=== PATIENT | male | born 1970 | race Caucasian/White ===

== ENCOUNTER 2016-12-04 10:22 | Observation (INO) | payer OTHER, MEDICAID ==
[~2016-12-04] VITALS: Ht 190.5 cm; Wt 127.2 kg
[~2016-12-04 10:22] MED LIST: ATOR20TA9 PO; CITA40TA12 PO; DIVA250T6 PO; DIVA500T2 PO; NAPR500T3 PO; OLAN20TA3 PO; RISP1TAB45 PO; SUMA50TA4 PO
[2016-12-04 10:51] LABS: HEMOGLOBIN 15.2 g/dL (13.7-18.0)
[2016-12-04 11:07] LABS: BLOOD UREA NITROGEN 14 mg/dL (7-18)
[2016-12-04 11:22] LABS: ACETAMINOPHEN < 2 mcg/mL (10-30)
[2016-12-04 11:58] LABS: DAU SCREEN DISCLAIMER
[2016-12-04] MEDS ORDERED: SUMATRIPTAN 50 MG TABLET PO PRN (13:00)
[2016-12-04] MEDS ORDERED: POLYETHYLENE GLYCOL 17 GM PACKET PO PRN (13:00)
[2016-12-04 14:34] VITALS: BP 120/80
[2016-12-04] MEDS: ENOXAPARIN 40 MG/0.4 ML SQ SCH ×2 (15:30→16:04)
[2016-12-04 19:33] VITALS: BP 152/79
[2016-12-04] MEDS ORDERED: DIVALPROEX 250 MG TABLET.DR PO SCH (21:00)
[2016-12-04] MEDS ORDERED: RISPERIDONE 1 MG TABLET PO SCH (21:00)
[2016-12-04] MEDS ORDERED: LACTULOSE 10 GM/15 ML UDC PO SCH (21:00)
[2016-12-04] MEDS ORDERED: ATORVASTATIN 20 MG TABLET PO SCH (21:00)
[2016-12-05] MEDS ORDERED: DIVALPROEX 500 MG TABLET.DR PO SCH (09:00)
== END 2016-12-04 20:05 ==
LOC: ED 11:57 → EDIP 11:58 → ED 12:26 → 3E 13:20
PROVIDERS: ADMIT Hospitalist; ATTEND Hospitalist
DX: R45.851 Suicidal ideations (principal); E78.00 Pure hypercholesterolemia, unspecified; E78.5 Hyperlipidemia, unspecified; F31.9 Bipolar disorder, unspecified; F41.9 Anxiety disorder, unspecified; F25.9 Schizoaffective disorder, unspecified; F95.2 Tourette's disorder; Z91.14 Patient's other noncompliance with medication regimen; Z91.5 Personal history of self-harm; Z79.899 Other long term (current) drug therapy
CPT/HCPCS: 36415; 80048; 80307; 80329; 82040; 84439; 84443; 85025; 85610; 99285; G0378; J1650; G0480

== ENCOUNTER 2017-01-29 18:03 | Observation (INO) | payer OTHER, MEDICAID ==
[~2017-01-29] VITALS: Ht 188 cm; Wt 127.0 kg
[2017-01-29 18:44] LABS: DAU SCREEN DISCLAIMER
[2017-01-29 19:26] LABS: BLOOD UREA NITROGEN 14 mg/dL (7-18)
[2017-01-29 19:28] LABS: ACETAMINOPHEN < 2 mcg/mL (10-30)
[2017-01-29] MEDS ORDERED: BISACODYL 10 MG SUPP PR PRN (20:30)
[2017-01-29] MEDS ORDERED: ONDANSETRON ODT 4 MG PO PRN (20:30)
[2017-01-29] MEDS ORDERED: POLYETHYLENE GLYCOL 17 GM PACKET PO PRN (20:30)
[2017-01-29] MEDS ORDERED: ACETAMINOPHEN 325 MG TABLET PO PRN (20:30)
[2017-01-29] MEDS ORDERED: NICOTINE 14MG/24 HR PATCH.TD24 TD SCH (20:30)
[2017-01-29] MEDS ORDERED: SUMATRIPTAN 50 MG TABLET PO PRN (20:30)
[2017-01-29] MEDS ORDERED: DIVALPROEX 250 MG TABLET.DR PO SCH (21:00)
[2017-01-29] MEDS ORDERED: ATORVASTATIN 20 MG TABLET PO SCH (21:00)
[2017-01-29] MEDS ORDERED: RISPERIDONE 1 MG TABLET PO SCH (21:00)
[2017-01-29] MEDS: NAPROXEN 500 MG TABLET PO SCH (22:05)
[2017-01-30 07:44] VITALS: BP 131/75
[2017-01-30] MEDS: NAPROXEN 500 MG TABLET PO SCH (08:44)
[2017-01-30] MEDS ORDERED: SENNA/DOCUSATE TABLET PO SCH (09:00)
[2017-01-30] MEDS ORDERED: DIVALPROEX 250 MG TABLET.DR PO SCH (09:00)
== END 2017-01-30 12:50 ==
LOC: ED 20:05 → EDIP 20:06 → ED 20:27 → 3E 21:23
PROVIDERS: ADMIT Internal Medicine; ATTEND Internal Medicine
DX: R45.851 Suicidal ideations (principal); F25.9 Schizoaffective disorder, unspecified; F31.9 Bipolar disorder, unspecified; F33.9 Major depressive disorder, recurrent, unspecified; F41.9 Anxiety disorder, unspecified; E78.5 Hyperlipidemia, unspecified; I10 Essential (primary) hypertension; F95.2 Tourette's disorder; F17.210 Nicotine dependence, cigarettes, uncomplicated; Z82.49 Family history of ischemic heart disease and other diseases of the circulatory system
CPT/HCPCS: 36415; 80048; 80307; 80329; 81003; 82040; 85025; 99285; G0378; G0480

== ENCOUNTER 2017-03-02 10:23 | Observation (INO) | payer OTHER, MEDICAID ==
[~2017-03-02] VITALS: Ht 177.8 cm; Wt 130.0 kg
[2017-03-02 11:28] LABS: BLOOD UREA NITROGEN 10 mg/dL (7-18)
[2017-03-02 11:36] LABS: ACETAMINOPHEN < 2 mcg/mL (10-30)
[2017-03-02 11:48] LABS: DAU SCREEN DISCLAIMER
[2017-03-02] MEDS ORDERED: SUMATRIPTAN 50 MG TABLET PO PRN (14:30)
[2017-03-02] MEDS ORDERED: BISACODYL 10 MG SUPP PR PRN (15:00)
[2017-03-02] MEDS ORDERED: NAPROXEN 250 MG TABLET PO PRN (15:00)
[2017-03-02] MEDS ORDERED: DIPHENHYDRAMINE 50 MG CAPSULE PO PRN (15:00)
[2017-03-02] MEDS ORDERED: POLYETHYLENE GLYCOL 17 GM PACKET PO PRN (15:00)
[2017-03-02] MEDS ORDERED: DOCUSATE 100 MG CAPSULE PO PRN (15:00)
[2017-03-02] MEDS: RISPERIDONE 1 MG TABLET PO SCH (21:12)
[2017-03-02] MEDS: DIVALPROEX 250 MG TABLET.DR PO SCH (21:12)
[2017-03-02] MEDS: ATORVASTATIN 20 MG TABLET PO SCH (21:13)
[2017-03-02] MEDS: NYSTATIN/TRIAMCINOLONE CRM 15GM TP SCH (21:13)
[2017-03-02] MEDS: NICOTINE 14MG/24 HR PATCH.TD24 TD SCH (22:00)
[2017-03-02 22:20] VITALS: BP 124/84
[2017-03-03 08:37] VITALS: BP 144/89
[2017-03-03] MEDS: NYSTATIN/TRIAMCINOLONE CRM 15GM TP SCH ×2 (09:56→20:34)
[2017-03-03] MEDS: DIVALPROEX 250 MG TABLET.DR PO SCH ×2 (09:56→20:35)
[2017-03-03] MEDS: NICOTINE 14MG/24 HR PATCH.TD24 TD SCH (16:27)
[2017-03-03 20:26] VITALS: BP 122/79
[2017-03-03] MEDS: ATORVASTATIN 20 MG TABLET PO SCH (20:34)
[2017-03-03] MEDS: RISPERIDONE 1 MG TABLET PO SCH (20:35)
[2017-03-04 08:30] VITALS: BP 126/86
[2017-03-04] MEDS: DIVALPROEX 250 MG TABLET.DR PO SCH ×2 (08:33→20:04)
[2017-03-04] MEDS: NYSTATIN/TRIAMCINOLONE CRM 15GM TP SCH ×2 (08:35→20:04)
[2017-03-04] MEDS: NICOTINE 14MG/24 HR PATCH.TD24 TD SCH (15:00)
[2017-03-04] MEDS: RISPERIDONE 1 MG TABLET PO SCH (20:04)
[2017-03-04] MEDS: ATORVASTATIN 20 MG TABLET PO SCH (20:04)
[2017-03-04 22:12] VITALS: BP 113/71
[2017-03-05 08:00] VITALS: BP 121/81
[2017-03-05] MEDS: DIVALPROEX 250 MG TABLET.DR PO SCH ×2 (08:38→20:36)
[2017-03-05] MEDS: NYSTATIN/TRIAMCINOLONE CRM 15GM TP SCH ×2 (08:39→20:36)
[2017-03-05] MEDS: NICOTINE 14MG/24 HR PATCH.TD24 TD SCH (15:00)
[2017-03-05 19:43] VITALS: BP 132/89
[2017-03-05] MEDS: ATORVASTATIN 20 MG TABLET PO SCH (20:36)
[2017-03-05] MEDS: RISPERIDONE 1 MG TABLET PO SCH (20:37)
[2017-03-06 07:57] VITALS: BP 134/86
[2017-03-06] MEDS: NYSTATIN/TRIAMCINOLONE CRM 15GM TP SCH (10:15)
[2017-03-06] MEDS: DIVALPROEX 250 MG TABLET.DR PO SCH (10:15)
== END 2017-03-06 15:00 | disposition home or self-care (01) ==
LOC: ED 11:33 → EDIP 14:08 → 3E 22:14
PROVIDERS: ADMIT Internal Medicine; ATTEND Internal Medicine
DX: R45.851 Suicidal ideations (principal); F25.9 Schizoaffective disorder, unspecified; F31.9 Bipolar disorder, unspecified; E78.5 Hyperlipidemia, unspecified; F32.9 Major depressive disorder, single episode, unspecified; E78.00 Pure hypercholesterolemia, unspecified; F95.2 Tourette's disorder; F17.210 Nicotine dependence, cigarettes, uncomplicated; Z91.5 Personal history of self-harm; Z86.79 Personal history of other diseases of the circulatory system; Z82.49 Family history of ischemic heart disease and other diseases of the circulatory system
CPT/HCPCS: 36415; 80048; 80307; 80329; 82040; 85025; 93005; 99285; G0378; G0480

== ENCOUNTER 2017-05-29 13:57 | Observation (INO) | payer OTHER, MEDICAID ==
[~2017-05-29] VITALS: Ht 190.5 cm; Wt 127.0 kg
[2017-05-29] MEDS ORDERED: DIVA500T2 PO (14:06)
[2017-05-29 14:28] LABS: DAU SCREEN DISCLAIMER
[2017-05-29 14:30] LABS: HEMATOCRIT 42.7 % (39.2-51.8); HEMOGLOBIN 14.6 g/dL (13.7-18.0); WHITE BLOOD COUNT 8.7 x10^3/uL (3.4-10)
[2017-05-29] MEDS ORDERED: IBUPROFEN 200 MG TABLET PO ONE (14:30)
[2017-05-29 14:42] LABS: BLOOD UREA NITROGEN 17 mg/dL (7-18)
[2017-05-29 14:46] LABS: ASPARTATE AMINO TRANSFERASE 28 U/L (15-37)
[2017-05-29 14:51] LABS: ACETAMINOPHEN < 2 mcg/mL (10-30)
[2017-05-29] MEDS ORDERED: POLYETHYLENE GLYCOL 17 GM PACKET PO PRN (16:00)
[2017-05-29] MEDS ORDERED: HALOPERIDOL 5 MG TABLET PO PRN (16:00)
[2017-05-29] MEDS ORDERED: ONDANSETRON ODT 4 MG PO PRN (16:00)
[2017-05-29] MEDS ORDERED: LORazepam 1MG TABLET PO PRN (16:00)
[2017-05-29 18:31] VITALS: BP 135/88
[2017-05-29 19:38] VITALS: BP 127/72
[2017-05-29] MEDS: ATORVASTATIN 20 MG TABLET PO SCH (20:36)
[2017-05-29] MEDS: DIVALPROEX 500 MG TABLET.DR PO SCH (20:36)
[2017-05-29] MEDS: RISPERIDONE 1 MG TABLET PO SCH (20:37)
[2017-05-30 08:08] VITALS: BP 136/87
[2017-05-30] MEDS: DIVALPROEX 500 MG TABLET.DR PO SCH ×2 (08:55→20:54)
[2017-05-30] MEDS: ACETAMINOPHEN 325 MG TABLET PO PRN (08:55)
[2017-05-30 19:42] VITALS: BP 131/82
[2017-05-30] MEDS: RISPERIDONE 1 MG TABLET PO SCH (20:55)
[2017-05-30] MEDS: ATORVASTATIN 20 MG TABLET PO SCH (20:55)
[2017-05-31 07:57] VITALS: BP 155/102
[2017-05-31] MEDS: DIVALPROEX 500 MG TABLET.DR PO SCH ×2 (07:58→20:15)
[2017-05-31] MEDS: ACETAMINOPHEN 325 MG TABLET PO PRN (07:59)
[2017-05-31 19:16] VITALS: BP 131/98
[2017-05-31] MEDS: SUMATRIPTAN 50 MG TABLET PO PRN (20:15)
[2017-05-31] MEDS: RISPERIDONE 1 MG TABLET PO SCH (20:15)
[2017-05-31] MEDS: ATORVASTATIN 20 MG TABLET PO SCH (20:15)
[2017-06-01 07:15] VITALS: BP 132/92
[2017-06-01] MEDS: DIVALPROEX 500 MG TABLET.DR PO SCH ×2 (08:29→20:42)
[2017-06-01] MEDS: SUMATRIPTAN 50 MG TABLET PO PRN ×2 (09:10→20:42)
[2017-06-01] MEDS ORDERED: ONDANSETRON ODT 4 MG PO PRN (19:30)
[2017-06-01] MEDS ORDERED: POLYETHYLENE GLYCOL 17 GM PACKET PO PRN (19:30)
[2017-06-01 20:33] VITALS: BP 148/92
[2017-06-01] MEDS: ATORVASTATIN 20 MG TABLET PO SCH (20:42)
[2017-06-01] MEDS: RISPERIDONE 1 MG TABLET PO SCH (20:42)
[2017-06-02 08:19] VITALS: BP 144/95
[2017-06-02] MEDS: DIVALPROEX 500 MG TABLET.DR PO SCH ×2 (08:54→20:04)
[2017-06-02] MEDS: SUMATRIPTAN 50 MG TABLET PO PRN (13:55)
[2017-06-02 19:22] VITALS: BP 133/84
[2017-06-02] MEDS: RISPERIDONE 1 MG TABLET PO SCH (20:04)
[2017-06-02] MEDS: ATORVASTATIN 20 MG TABLET PO SCH (20:04)
[2017-06-03 07:57] VITALS: BP 138/92
[2017-06-03] MEDS: DIVALPROEX 500 MG TABLET.DR PO SCH ×2 (08:33→20:25)
[2017-06-03] MEDS: SUMATRIPTAN 50 MG TABLET PO PRN (10:34)
[2017-06-03 19:52] VITALS: BP 136/90
[2017-06-03] MEDS: ATORVASTATIN 20 MG TABLET PO SCH (20:25)
[2017-06-03] MEDS: RISPERIDONE 1 MG TABLET PO SCH (20:25)
[2017-06-04 07:15] VITALS: BP_SYST 108; BP_SYST 127; BP_DIAS 71; BP_DIAS 88
[2017-06-04] MEDS: DIVALPROEX 500 MG TABLET.DR PO SCH ×2 (08:49→20:39)
[2017-06-04] MEDS: SUMATRIPTAN 50 MG TABLET PO PRN (08:49)
[2017-06-04 19:20] VITALS: BP 148/95
[2017-06-04] MEDS: RISPERIDONE 1 MG TABLET PO SCH (20:39)
[2017-06-04] MEDS: ATORVASTATIN 20 MG TABLET PO SCH (20:39)
[2017-06-04] MEDS: ACETAMINOPHEN 325 MG TABLET PO PRN (20:43)
[2017-06-05 08:00] VITALS: BP 137/94
[2017-06-05] MEDS: DIVALPROEX 500 MG TABLET.DR PO SCH (10:02)
[2017-06-05 14:51] LABS: ASPARTATE AMINO TRANSFERASE 26 U/L (15-37); BLOOD UREA NITROGEN 16 mg/dL (7-18)
[2017-06-05 14:54] LABS: VALPROIC ACID 99.2 mcg/mL (50.0-100.0)
== END 2017-06-05 16:40 | disposition home or self-care (01) ==
LOC: ED 15:00 → EDIP 15:06 → 3E 18:17
PROVIDERS: ADMIT Internal Medicine; ATTEND Internal Medicine
DX: R45.851 Suicidal ideations (principal); E78.00 Pure hypercholesterolemia, unspecified; R73.02 Impaired glucose tolerance (oral); E66.9 Obesity, unspecified; E78.5 Hyperlipidemia, unspecified; F22 Delusional disorders; F25.9 Schizoaffective disorder, unspecified; F32.9 Major depressive disorder, single episode, unspecified
CPT/HCPCS: 36415; 80053; 80164; 80307; 80329; 85025; 99285; G0378; G0479; G0480

== ENCOUNTER 2017-08-24 10:24 | Emergency (ER) | payer OTHER, MEDICAID ==
[~2017-08-24] VITALS: Ht 190.5 cm; Wt 141.0 kg
[~2017-08-24 10:24] MED LIST changes: -NAPR500T3 PO; +NAPR500T4 PO
[2017-08-24 11:13] LABS: BLOOD UREA NITROGEN 19 mg/dL (7-18)
[2017-08-24 11:14] LABS: ACETAMINOPHEN < 2 mcg/mL (10-30)
[2017-08-24 11:24] LABS: HEMATOCRIT 45.9 % (39.2-51.8); HEMOGLOBIN 15.6 g/dL (13.7-18.0); WHITE BLOOD COUNT 7.4 x10^3/uL (3.4-10)
[2017-08-24 12:24] LABS: DAU SCREEN DISCLAIMER
[2017-08-24 15:12] VITALS: BP 144/86
== END 2017-08-24 16:18 | disposition home or self-care (01) ==
LOC: ED 12:49
DX: F31.9 Bipolar disorder, unspecified (principal); F25.9 Schizoaffective disorder, unspecified; E78.00 Pure hypercholesterolemia, unspecified
CPT/HCPCS: 36415; 80048; 80307; 80329; 82040; 85025; 99284; G0479; G0480

== ENCOUNTER 2017-10-11 19:27 | Observation (INO) | payer OTHER, MEDICAID ==
[~2017-10-11] VITALS: Ht 185.4 cm; Wt 127.3 kg
[2017-10-11 20:14] LABS: BASOPHILS # (AUTO) 0.03 x10^3/uL (0-0.1); BASOPHILS % (AUTO) 0 % (0-1); EOSINOPHILS # (AUTO) 0.12 x10^3/uL (0-0.4); EOSINOPHILS % (AUTO) 2 % (1-7); LYMPHOCYTES # (AUTO) 1.82 x10^3/uL (1-3.4); LYMPHOCYTES % (AUTO) 26 % (22-44); MD NO; MEAN CORPUSCULAR HEMOGLOBIN 30.8 pg (27.5-34.5); MEAN CORPUSCULAR HGB CONC 34.4 g/dL (33.2-36.2); MEAN CORPUSCULAR VOLUME 89.4 fL (81-97); MEAN PLATELET VOLUME 8.6 fL (7.4-10.4); MONOCYTES # (AUTO) 0.57 x10^3/uL (0.2-0.8); MONOCYTES % (AUTO) 8 % (2-9); NEUTROPHILS # (AUTO) 4.37 x10^3/uL (1.8-6.8); NEUTROPHILS % (AUTO) 63 % (42-75); PLATELET COUNT 241 x10^3/uL (130-400); RED BLOOD COUNT 5.33 x10^6/uL (4.38-5.82); RED CELL DISTRIBUTION WIDTH 12.2 % (9.4-14.8)
[2017-10-11 20:25] LABS: ALBUMIN 3.8 g/dL (3.4-5.0); ANION GAP 10 mmol/L (5-15); CALCIUM 8.7 mg/dL (8.5-10.1); CHLORIDE 108 mmol/L (98-107)
[2017-10-11 20:28] LABS: ACETAMINOPHEN < 2 mcg/mL (10-30); SALICYLATE LEVEL < 1.7 mg/dL (2.8-20.0)
[2017-10-11] MEDS ORDERED: ONDANSETRON ODT 4 MG PO PRN (22:30)
[2017-10-11] MEDS ORDERED: POLYETHYLENE GLYCOL 17 GM PACKET PO PRN (22:30)
[2017-10-11] MEDS ORDERED: BISACODYL 10 MG SUPP PR PRN (22:30)
[2017-10-11 22:35] LABS: AMPHETAMINE SCREEN, URINE Positive (Negative); BARBITURATE SCREEN, URINE Negative (Negative); BENZODIAZEPINE SCREEN, URINE Negative (Negative); CANNABINOID SCREEN, URINE Positive (Negative); COCAINE SCREEN, URINE Negative (Negative); METHADONE SCREEN, URINE Negative (Negative); OPIATE SCREEN, URINE Negative (Negative)
[2017-10-11] MEDS ORDERED: POTASSIUM CHLORIDE 20 MEQ TAB.ER.PRT PO ONE (23:00)
[2017-10-11] MEDS ORDERED: NICOTINE 21 MG/24 HR PATCH.TD24 TD ONE (23:00)
[2017-10-11 23:01] LABS: MICROSCOPIC INDICATED
[2017-10-11 23:10] VITALS: BP 114/76
[2017-10-12] MEDS ORDERED: POTASSIUM CHLORIDE 20 MEQ TAB.ER.PRT PO ONE (07:30)
[2017-10-12 07:45] VITALS: BP 122/79
[2017-10-12] MEDS: SENNA/DOCUSATE TABLET PO SCH (09:00)
[2017-10-12 19:45] VITALS: BP 104/73
[2017-10-13 05:29] LABS: ALBUMIN 3.3 g/dL (3.4-5.0); ANION GAP 7 mmol/L (5-15); BASOPHILS # (AUTO) 0.03 x10^3/uL (0-0.1); BASOPHILS % (AUTO) 0 % (0-1); CALCIUM 8.2 mg/dL (8.5-10.1); CHLORIDE 110 mmol/L (98-107); CREATININE 0.88 mg/dL (0.7-1.3); EOSINOPHILS # (AUTO) 0.16 x10^3/uL (0-0.4); EOSINOPHILS % (AUTO) 2 % (1-7); LYMPHOCYTES # (AUTO) 3.06 x10^3/uL (1-3.4); LYMPHOCYTES % (AUTO) 40 % (22-44); MD NO; MEAN CORPUSCULAR HEMOGLOBIN 30.6 pg (27.5-34.5); MEAN CORPUSCULAR HGB CONC 34.1 g/dL (33.2-36.2); MEAN CORPUSCULAR VOLUME 89.8 fL (81-97); MEAN PLATELET VOLUME 8.6 fL (7.4-10.4); MONOCYTES # (AUTO) 0.58 x10^3/uL (0.2-0.8); MONOCYTES % (AUTO) 8 % (2-9); NEUTROPHILS # (AUTO) 3.92 x10^3/uL (1.8-6.8); NEUTROPHILS % (AUTO) 51 % (42-75); PLATELET COUNT 211 x10^3/uL (130-400); RED BLOOD COUNT 5.08 x10^6/uL (4.38-5.82); RED CELL DISTRIBUTION WIDTH 12.4 % (9.4-14.8)
[2017-10-13 08:00] VITALS: BP 129/76
[2017-10-13] MEDS: SENNA/DOCUSATE TABLET PO SCH (08:04)
[2017-10-13 20:00] VITALS: BP 118/82
[2017-10-14 08:24] VITALS: BP 110/72
[2017-10-14] MEDS: SENNA/DOCUSATE TABLET PO SCH (09:00)
[2017-10-14] MEDS: SERTRALINE 50MG TABLET PO SCH (11:12)
[2017-10-14 20:21] VITALS: BP 100/67
[2017-10-15 05:53] LABS: ALBUMIN 3.2 g/dL (3.4-5.0); ANION GAP 6 mmol/L (5-15); CALCIUM 8.3 mg/dL (8.5-10.1); CHLORIDE 110 mmol/L (98-107)
[2017-10-15 08:08] VITALS: BP 133/93
[2017-10-15] MEDS: SENNA/DOCUSATE TABLET PO SCH (08:17)
[2017-10-15] MEDS: SERTRALINE 50MG TABLET PO SCH (08:18)
[2017-10-15 19:07] VITALS: BP 110/79
[2017-10-16 07:13] VITALS: BP 120/77
[2017-10-16] MEDS: SENNA/DOCUSATE TABLET PO SCH (08:53)
[2017-10-16] MEDS: SERTRALINE 50MG TABLET PO SCH (08:53)
[2017-10-16] MEDS: DOXYCYCLINE 100MG TABLET PO SCH ×2 (17:18→21:00)
[2017-10-16] MEDS: AMOXICILLIN/CLAV 875-125MG TABLET PO SCH ×2 (17:18→21:00)
[2017-10-16 19:22] VITALS: BP 134/77
[2017-10-17 07:29] VITALS: BP 108/72
[2017-10-17] MEDS: SERTRALINE 50MG TABLET PO SCH (08:19)
[2017-10-17] MEDS: AMOXICILLIN/CLAV 875-125MG TABLET PO SCH ×2 (08:19→20:47)
[2017-10-17] MEDS: DOXYCYCLINE 100MG TABLET PO SCH ×2 (08:19→20:47)
[2017-10-17] MEDS: SENNA/DOCUSATE TABLET PO SCH (08:19)
[2017-10-17 20:00] VITALS: BP 112/73
[2017-10-18 08:00] VITALS: BP 117/74
[2017-10-18] MEDS: AMOXICILLIN/CLAV 875-125MG TABLET PO SCH ×2 (09:28→20:53)
[2017-10-18] MEDS: DOXYCYCLINE 100MG TABLET PO SCH ×2 (09:29→20:53)
[2017-10-18] MEDS: SERTRALINE 50MG TABLET PO SCH (09:29)
[2017-10-18] MEDS: SENNA/DOCUSATE TABLET PO SCH (09:29)
[2017-10-18 20:00] VITALS: BP 133/80
[2017-10-19 05:38] LABS: BASOPHILS # (AUTO) 0.07 x10^3/uL (0-0.1); BASOPHILS % (AUTO) 1 % (0-1); EOSINOPHILS # (AUTO) 0.11 x10^3/uL (0-0.4); EOSINOPHILS % (AUTO) 1 % (1-7); LYMPHOCYTES # (AUTO) 3.36 x10^3/uL (1-3.4); LYMPHOCYTES % (AUTO) 44 % (22-44); MD NO; MEAN CORPUSCULAR HEMOGLOBIN 30.6 pg (27.5-34.5); MEAN PLATELET VOLUME 8.5 fL (7.4-10.4); MONOCYTES # (AUTO) 0.53 x10^3/uL (0.2-0.8); MONOCYTES % (AUTO) 7 % (2-9); NEUTROPHILS # (AUTO) 3.57 x10^3/uL (1.8-6.8); NEUTROPHILS % (AUTO) 47 % (42-75); PLATELET COUNT 243 x10^3/uL (130-400); RED BLOOD COUNT 5.18 x10^6/uL (4.38-5.82); RED CELL DISTRIBUTION WIDTH 11.9 % (9.4-14.8)
[2017-10-19 05:46] LABS: ALBUMIN 3.4 g/dL (3.4-5.0); ANION GAP 9 mmol/L (5-15); CALCIUM 8.3 mg/dL (8.5-10.1); CHLORIDE 108 mmol/L (98-107)
[2017-10-19 05:48] LABS: CREATININE 0.94 mg/dL (0.7-1.3)
[2017-10-19 08:00] VITALS: BP 118/82
[2017-10-19] MEDS: AMOXICILLIN/CLAV 875-125MG TABLET PO SCH ×2 (08:56→20:19)
[2017-10-19] MEDS: DOXYCYCLINE 100MG TABLET PO SCH ×2 (08:56→20:19)
[2017-10-19] MEDS: SERTRALINE 50MG TABLET PO SCH (08:56)
[2017-10-19] MEDS: SENNA/DOCUSATE TABLET PO SCH (08:57)
[2017-10-19] MEDS: ENOXAPARIN 40 MG/0.4 ML SQ SCH (11:58)
[2017-10-19] MEDS: ACETAMINOPHEN 325 MG TABLET PO PRN (20:19)
[2017-10-19 20:24] VITALS: BP 101/75
[2017-10-20 07:45] VITALS: BP 115/78
[2017-10-20] MEDS: SERTRALINE 50MG TABLET PO SCH (08:40)
[2017-10-20] MEDS: DOXYCYCLINE 100MG TABLET PO SCH ×2 (08:40→20:55)
[2017-10-20] MEDS: AMOXICILLIN/CLAV 875-125MG TABLET PO SCH ×2 (08:41→20:56)
[2017-10-20] MEDS: ENOXAPARIN 40 MG/0.4 ML SQ SCH (08:42)
[2017-10-20] MEDS: SENNA/DOCUSATE TABLET PO SCH (08:42)
[2017-10-20 19:37] VITALS: BP 102/69
[2017-10-20] MEDS: RISPERIDONE 1 MG TABLET PO SCH (20:55)
[2017-10-21 07:18] VITALS: BP 110/73
[2017-10-21] MEDS: ENOXAPARIN 40 MG/0.4 ML SQ SCH (08:17)
[2017-10-21] MEDS: AMOXICILLIN/CLAV 875-125MG TABLET PO SCH ×2 (08:18→20:25)
[2017-10-21] MEDS: SERTRALINE 50MG TABLET PO SCH (08:18)
[2017-10-21] MEDS: SENNA/DOCUSATE TABLET PO SCH (08:18)
[2017-10-21] MEDS: DOXYCYCLINE 100MG TABLET PO SCH ×2 (08:18→20:24)
[2017-10-21 19:38] VITALS: BP 120/81
[2017-10-21] MEDS: RISPERIDONE 1 MG TABLET PO SCH (20:25)
[2017-10-22 08:18] VITALS: BP 112/75
[2017-10-22] MEDS: DOXYCYCLINE 100MG TABLET PO SCH ×2 (08:39→21:12)
[2017-10-22] MEDS: SERTRALINE 50MG TABLET PO SCH (08:39)
[2017-10-22] MEDS: ENOXAPARIN 40 MG/0.4 ML SQ SCH (08:40)
[2017-10-22] MEDS: SENNA/DOCUSATE TABLET PO SCH (08:40)
[2017-10-22] MEDS: AMOXICILLIN/CLAV 875-125MG TABLET PO SCH ×2 (08:48→21:00)
[2017-10-22 19:42] VITALS: BP 138/85
[2017-10-22] MEDS: RISPERIDONE 1 MG TABLET PO SCH (21:11)
[2017-10-23 07:23] VITALS: BP 109/73
[2017-10-23] MEDS: SENNA/DOCUSATE TABLET PO SCH (08:41)
[2017-10-23] MEDS: AMOXICILLIN/CLAV 875-125MG TABLET PO SCH ×2 (08:41→20:15)
[2017-10-23] MEDS: SERTRALINE 50MG TABLET PO SCH (08:41)
[2017-10-23] MEDS: ENOXAPARIN 40 MG/0.4 ML SQ SCH (08:41)
[2017-10-23] MEDS: DOXYCYCLINE 100MG TABLET PO SCH ×2 (08:41→20:16)
[2017-10-23 19:35] VITALS: BP 97/66
[2017-10-23] MEDS: RISPERIDONE 1 MG TABLET PO SCH (20:16)
[2017-10-24 07:52] VITALS: BP 121/82
[2017-10-24] MEDS: AMOXICILLIN/CLAV 875-125MG TABLET PO SCH ×2 (09:00→20:06)
[2017-10-24] MEDS: SENNA/DOCUSATE TABLET PO SCH (09:00)
[2017-10-24] MEDS: DOXYCYCLINE 100MG TABLET PO SCH ×2 (09:01→20:06)
[2017-10-24] MEDS: SERTRALINE 50MG TABLET PO SCH (09:01)
[2017-10-24] MEDS: ENOXAPARIN 40 MG/0.4 ML SQ SCH (09:01)
[2017-10-24] MEDS: ACETAMINOPHEN 325 MG TABLET PO PRN (17:44)
[2017-10-24 19:40] VITALS: BP 159/82
[2017-10-24] MEDS: RISPERIDONE 1 MG TABLET PO SCH (20:07)
[2017-10-24 20:13] VITALS: BP 132/88
[2017-10-25 07:30] VITALS: BP 112/70
[2017-10-25] MEDS: ENOXAPARIN 40 MG/0.4 ML SQ SCH (08:29)
[2017-10-25] MEDS: SENNA/DOCUSATE TABLET PO SCH (08:29)
[2017-10-25] MEDS: DOXYCYCLINE 100MG TABLET PO SCH ×2 (08:30→20:28)
[2017-10-25] MEDS: AMOXICILLIN/CLAV 875-125MG TABLET PO SCH ×2 (08:30→20:27)
[2017-10-25] MEDS: SERTRALINE 50MG TABLET PO SCH (08:30)
[2017-10-25 20:18] VITALS: BP 119/81
[2017-10-25] MEDS: RISPERIDONE 1 MG TABLET PO SCH (20:27)
[2017-10-26 07:30] VITALS: BP 107/69
[2017-10-26] MEDS: ENOXAPARIN 40 MG/0.4 ML SQ SCH (08:54)
[2017-10-26] MEDS: SENNA/DOCUSATE TABLET PO SCH (08:55)
[2017-10-26] MEDS: DOXYCYCLINE 100MG TABLET PO SCH ×2 (08:55→20:22)
[2017-10-26] MEDS: SERTRALINE 50MG TABLET PO SCH (08:55)
[2017-10-26] MEDS: AMOXICILLIN/CLAV 875-125MG TABLET PO SCH ×2 (08:58→20:22)
[2017-10-26] MEDS: ACETAMINOPHEN 325 MG TABLET PO PRN (16:34)
[2017-10-26 20:08] VITALS: BP 118/75
[2017-10-26] MEDS: RISPERIDONE 1 MG TABLET PO SCH (20:22)
[2017-10-27 08:27] VITALS: BP 123/81
[2017-10-27] MEDS: ENOXAPARIN 40 MG/0.4 ML SQ SCH (08:48)
[2017-10-27] MEDS: SENNA/DOCUSATE TABLET PO SCH (08:49)
[2017-10-27] MEDS: AMOXICILLIN/CLAV 875-125MG TABLET PO SCH ×2 (08:49→20:12)
[2017-10-27] MEDS: DOXYCYCLINE 100MG TABLET PO SCH ×2 (08:49→20:12)
[2017-10-27] MEDS: SERTRALINE 50MG TABLET PO SCH (08:49)
[2017-10-27] MEDS: ACETAMINOPHEN 325 MG TABLET PO PRN (18:07)
[2017-10-27 19:40] VITALS: BP 121/85
[2017-10-27] MEDS: RISPERIDONE 1 MG TABLET PO SCH (20:12)
[2017-10-28 07:37] VITALS: BP 102/75
[2017-10-28] MEDS: DOXYCYCLINE 100MG TABLET PO SCH (08:07)
[2017-10-28] MEDS: SENNA/DOCUSATE TABLET PO SCH (08:07)
[2017-10-28] MEDS: ENOXAPARIN 40 MG/0.4 ML SQ SCH (08:07)
[2017-10-28] MEDS: SERTRALINE 50MG TABLET PO SCH (08:07)
[2017-10-28] MEDS: AMOXICILLIN/CLAV 875-125MG TABLET PO SCH (08:08)
== END 2017-10-28 14:05 ==
LOC: ED 20:56 → EDIP 22:34 → 2N 23:04
PROVIDERS: ADMIT Internal Medicine; ATTEND Internal Medicine
DX: R45.851 Suicidal ideations (principal); F31.9 Bipolar disorder, unspecified; R00.0 Tachycardia, unspecified; E87.6 Hypokalemia; E87.2 Acidosis; F25.9 Schizoaffective disorder, unspecified; E78.5 Hyperlipidemia, unspecified; F17.210 Nicotine dependence, cigarettes, uncomplicated; I10 Essential (primary) hypertension
CPT/HCPCS: 36415; 80048; 80307; 80329; 81001; 82040; 83735; 85025; 96372; 99285; G0378; J1650; Q0162; G0480

== ENCOUNTER 2017-11-04 23:50 | Emergency (ER) | payer OTHER, MEDICAID ==
[~2017-11-04] VITALS: Ht 190.5 cm; Wt 130.5 kg
[2017-11-05 00:46] LABS: ANION GAP 8 mmol/L (5-15); CALCIUM 8.7 mg/dL (8.5-10.1); CHLORIDE 105 mmol/L (98-107); CREATININE 1.27 mg/dL (0.7-1.3)
[2017-11-05 00:47] LABS: ACETAMINOPHEN < 2 mcg/mL (10-30); SALICYLATE LEVEL < 1.7 mg/dL (2.8-20.0)
[2017-11-05 00:53] LABS: BASOPHILS # (AUTO) 0.08 x10^3/uL (0-0.1); BASOPHILS % (AUTO) 1 % (0-1); EOSINOPHILS # (AUTO) 0.11 x10^3/uL (0-0.4); EOSINOPHILS % (AUTO) 1 % (1-7); LYMPHOCYTES # (AUTO) 3.29 x10^3/uL (1-3.4); LYMPHOCYTES % (AUTO) 32 % (22-44); MD NO; MEAN CORPUSCULAR HEMOGLOBIN 30.5 pg (27.5-34.5); MEAN CORPUSCULAR HGB CONC 34.1 g/dL (33.2-36.2); MEAN CORPUSCULAR VOLUME 89.4 fL (81-97); MEAN PLATELET VOLUME 8.5 fL (7.4-10.4); MONOCYTES # (AUTO) 0.93 x10^3/uL (0.2-0.8); MONOCYTES % (AUTO) 9 % (2-9); NEUTROPHILS # (AUTO) 6.04 x10^3/uL (1.8-6.8); NEUTROPHILS % (AUTO) 58 % (42-75); PLATELET COUNT 321 x10^3/uL (130-400); RED BLOOD COUNT 5.48 x10^6/uL (4.38-5.82); RED CELL DISTRIBUTION WIDTH 12.4 % (9.4-14.8)
[2017-11-05 01:37] LABS: AMPHETAMINE SCREEN, URINE Negative (Negative); BARBITURATE SCREEN, URINE Negative (Negative); BENZODIAZEPINE SCREEN, URINE Negative (Negative); CANNABINOID SCREEN, URINE Negative (Negative); COCAINE SCREEN, URINE Negative (Negative); METHADONE SCREEN, URINE Negative (Negative); OPIATE SCREEN, URINE Negative (Negative)
[2017-11-05 03:22] VITALS: BP 138/92
== END 2017-11-05 03:51 | disposition home or self-care (01) ==
LOC: ED 23:59
DX: F33.9 Major depressive disorder, recurrent, unspecified (principal); R45.851 Suicidal ideations; F20.9 Schizophrenia, unspecified; Z79.899 Other long term (current) drug therapy
CPT/HCPCS: 36415; 80048; 80307; 80329; 82040; 85025; 99284; G0480

== ENCOUNTER 2017-11-19 15:57 | Observation (INO) | payer OTHER, MEDICAID ==
[~2017-11-19] VITALS: Ht 193 cm; Wt 125.0 kg
[~2017-11-19 15:57] MED LIST changes: +NAPR-685 PO; -NAPR500T4 PO
[2017-11-19 16:56] LABS: BASOPHILS # (AUTO) 0.07 x10^3/uL (0-0.1); BASOPHILS % (AUTO) 1 % (0-1); EOSINOPHILS # (AUTO) 0.04 x10^3/uL (0-0.4); EOSINOPHILS % (AUTO) 1 % (1-7); LYMPHOCYTES % (AUTO) 25 % (22-44); MD NO; MEAN CORPUSCULAR HEMOGLOBIN 30.1 pg (27.5-34.5); MEAN CORPUSCULAR VOLUME 88.5 fL (81-97); MEAN PLATELET VOLUME 8.3 fL (7.4-10.4); MONOCYTES # (AUTO) 0.57 x10^3/uL (0.2-0.8); MONOCYTES % (AUTO) 8 % (2-9); NEUTROPHILS # (AUTO) 4.94 x10^3/uL (1.8-6.8); NEUTROPHILS % (AUTO) 66 % (42-75); PLATELET COUNT 295 x10^3/uL (130-400); RED BLOOD COUNT 5.64 x10^6/uL (4.38-5.82); RED CELL DISTRIBUTION WIDTH 12.5 % (9.4-14.8)
[2017-11-19 17:01] LABS: ANION GAP 6 mmol/L (5-15); CALCIUM 9.1 mg/dL (8.5-10.1); CHLORIDE 104 mmol/L (98-107); CREATININE 1.22 mg/dL (0.7-1.3)
[2017-11-19 17:11] LABS: ACETAMINOPHEN < 2 mcg/mL (10-30); SALICYLATE LEVEL < 1.7 mg/dL (2.8-20.0)
[2017-11-19 19:53] LABS: AMPHETAMINE SCREEN, URINE Negative (Negative); BARBITURATE SCREEN, URINE Negative (Negative); BENZODIAZEPINE SCREEN, URINE Negative (Negative); CANNABINOID SCREEN, URINE Negative (Negative); COCAINE SCREEN, URINE Negative (Negative); METHADONE SCREEN, URINE Negative (Negative); OPIATE SCREEN, URINE Negative (Negative)
[2017-11-20] MEDS ORDERED: POTASSIUM CHLORIDE 20 MEQ TAB.ER.PRT PO ONE (15:00)
[2017-11-20] MEDS ORDERED: ACETAMINOPHEN 325 MG TABLET PO PRN (15:00)
[2017-11-20] MEDS ORDERED: LORazepam 2 MG/ML, 1ML IM PRN (15:00)
[2017-11-20] MEDS ORDERED: POTASSIUM CHLORIDE 20 MEQ TAB.ER.PRT ONE (15:09)
[2017-11-20] MEDS ORDERED: NICOTINE 21 MG/24 HR PATCH.TD24 TD ONE (15:30)
[2017-11-20] MEDS: DIVALPROEX 500 MG TABLET.DR PO SCH (21:17)
[2017-11-21] MEDS ORDERED: FLUOXETINE HCL 20 MG CAPSULE PO SCH (09:00)
[2017-11-21] MEDS ORDERED: FLUOXETINE HCL 20 MG CAPSULE ONE (12:17)
[2017-11-21] MEDS: DIVALPROEX 500 MG TABLET.DR PO SCH (12:35)
[2017-11-21 13:26] VITALS: BP 129/87
== END 2017-11-21 15:30 ==
LOC: ED 16:35 → EDIP 16:36 → ED 16:44
PROVIDERS: ADMIT Hospitalist; ATTEND Internal Medicine
DX: R45.851 Suicidal ideations (principal); F32.9 Major depressive disorder, single episode, unspecified; F25.9 Schizoaffective disorder, unspecified; F15.10 Other stimulant abuse, uncomplicated; F12.10 Cannabis abuse, uncomplicated; F29 Unspecified psychosis not due to a substance or known physiological condition; Z87.891 Personal history of nicotine dependence; Z91.14 Patient's other noncompliance with medication regimen; Z91.5 Personal history of self-harm
CPT/HCPCS: 36415; 80048; 80307; 80329; 82040; 85025; 99285; G0378; G0480

== ENCOUNTER 2020-01-06 14:44 | Emergency (ER) | payer MEDICAID, MEDICARE, OTHER ==
[~2020-01-06] VITALS: Ht 193 cm; Wt 126.7 kg
[~2020-01-06 14:44] MED LIST changes: +ATOR20TA37 PO; -ATOR20TA9 PO; +DIPH25CA61 PO; +DIVA-59 PO; +DIVA-61 PO; -DIVA250T6 PO; +FLUO40CA2 PO; +RISP1TAB3 PO; +zocor
--- NOTE | 2020-01-06 15:18 | NUR ---
pt ambulated back to room, smooth and steady gait, resting on gurney NAD, call light on lap, denies additional needs at this time. P/W/D, FCS no SOB noted, RESP WNL, MAEx4, WCTM.
[2020-01-06 15:44] VITALS: BP 137/87
--- NOTE | 2020-01-06 15:45 | NUR ---
Pt resting on [employer] NAD, call light on lap, denies additional needs at this time. P/W/D, FCS no SOB noted, RESP WNL, MAEx4, WCTM. waiting for dc paperwork
== END 2020-01-06 16:15 | disposition home or self-care (01) ==
LOC: ED 15:25
DX: L03.031 Cellulitis of right toe (principal)
CPT/HCPCS: 82962; 99283